=== PATIENT | female | born 1955 | race Caucasian/White ===

== ENCOUNTER 2023-05-23 10:43 | Outpatient (CLI) | payer MEDICARE, OTHER, SELFPAY ==
[2023-05-23 11:17] LABS: Anion Gap 9 mmol/L (8-16); Blood Urea Nitrogen 19 mg/dL (7-17); Calcium 9.4 mg/dL (8.4-10.2); Carbon Dioxide 27 mmol/L (22-30); Chloride 99 mmol/L (98-107); Estimated Glomerular Filt Rate > 60; Glucose 105 mg/dL (65-110); Sodium 135 mmol/L (137-145)
== END 2023-05-23 10:44 | disposition home or self-care (01) ==
PROVIDERS: Anesthesiology; PCP Family Medicine; Visit Provider Urology
DX: I10 Essential (primary) hypertension (principal)
CPT/HCPCS: 36415; 80048

== ENCOUNTER 2023-05-27 00:35 | Day surgery (SDC) | payer MEDICARE, OTHER, SELFPAY ==
--- NOTE | 2023-05-19 15:16 | PC.NURSE ---
Report to the Outpatient Waiting Room, entrance under the green pavilion located off [facility], at time _0600 on date _05/27/23 . Planned Procedure Time: __0730 . Time changes happen often and if your time is changed the preop area will call you the afternoon before. - You and your visitor will be asked to self-screen and do not enter if you have any COVID symptoms. - A mask is optional within the hospital at this time. Patients may have clear liquids (water, carbonated beverages, clear teas, apple juice) until 3 hours prior to surgery with a maximum of 20 ounces. - No food from midnight until time of surgery - Infants may have breast milk until 4 hours before surgery, infant formula 6 hours prior to surgery. - Children will be allowed to drink immediately following surgery. If applicable, please bring a bottle or sippy cup to assist with drinking. Juice, water, soda, and popsicles are readily available. For infants on formula, please bring formula the day of surgery. Pacifiers are allowed. Take the following medications with a SIP of water the morning of surgery: ____AMLODIPINE,ESCITALOPRAM DO NOT STOP ANY OF YOUR OTHER PRESCRIPTION MEDICATIONS PRIOR TO SURGERY ?EXCEPT THE FOLLOWING Medications to discontinue per physician ALL VITAMINS/SUPPLEMENTS 3 DAYS PRE OP.LAST DOSE 05/24/23 Please no make-up, nail faroese, hairspray, perfume, deodorant, or body powder the day of surgery. No jewelry (including any body piercings) or valuables the day of surgery, leave them at home. Please take a shower or bath the night before, or the morning of, surgery with an antibacterial soap. Wear comfortable, loose fitting clothing. Children are encouraged to wear pajamas. - Jewelry must be removed prior to entering the operating room. Rings and piercings that are not removed may be cut off. - The hospital will not accept responsibility for valuables. - Please leave all valuables, including medications, at home the day of surgery. If you are going home after surgery, a licensed explosives truck driver must drive you home. - NO public transportation without another adult if you receive anesthesia. - We recommend that an adult stay with you for 24 hours following discharge. - We also recommend that you do not drive, make important decision, drink alcoholic beverages, or take any drugs that were not prescribed by your health care provider for at least 24 hours after your discharge time. For Pediatric surgeries, we recommend two adults accompany the child home. Follow any additional instructions given to you from your surgeon. If you or anyone in your household have experienced Covid symptoms in the past week, please notify your surgeon or the nurse liaison at the phone number below for possible testing. Telephone instructions given to __PATIENT and asked if any additional questions and then verbalized understanding. Patient advised to call surgeon office or pre surgery nurse liaison [phone] if any additional questions.
[2023-05-19 15:26] VITALS: BMI 30.2
--- NOTE | 2023-05-25 18:19 | PM.IMHP ---
H&P: HPI History of Present Illness Date/Time: 05/25/23 18:19 Chief Complaint: Stress incontinence Narrative: she has stress urinary incontinence. It is confirmed on urodynamics. We discussed sling. We discussed observation. We discussed physical therapy. We discussed bulking agent. She would like to pursue a bulking agent Review of Systems Review of Systems: All systems reviewed & are unremarkable except as noted in HPI and below PMFSH Past Medical History Medical History Abnormal Pap smear of cervix 08/15/07 - pema; 12/23/15 HGSIL (+) hpv Anxiety and depression Breast cancer in female (~07/2015) History of endometrial biopsy 04/15/98 hscope emb in office--dysfunctional uterine bleeding--mildly disordered proliferative endometrium 02/26/05 emb--focal disordered proliferative changes HPV in female Hypertension Stress incontinence Surgical History Surgical History History of colposcopy with cervical biopsy 11/21/07 benign 01/12/16 mild squamous atypia History of dilation and curettage (~1982) History of hysterectomy, supracervical (~2004) supracx hyst w/RSO--(R) ovarian endometrioma, uterine fibroids--endometriosis, adhesions, hyalinized, leiomyoma, benign hemorrhagic cyst History of loop electrosurgical excision procedure (LEEP) (02/05/16) HGSIL, SHANA II--margins free History of lumpectomy (07/30/15) breast cancer--16 radiation treatments History of tonsillectomy and adenoidectomy (~1961) Family History Family History Mother Hypertension Malignant neoplasm of lung Father Hypertension Malignant neoplasm of lung Sibling Hypertension brother sister Leukemia brother x2 Malignant neoplasm of skin sister Social History Social History Smoking status: Never smoker Alcohol intake: current Drinks per week: 1 Substance use: never Substance use type: does not use Living arrangements: with family Additional living arrangements comments: Occupation/Education: retired Gender identity (if verbalized by the patient): Female Sexual Orientation (if Verbalized by the Patient): Straight or Heterosexual Spiritual care concerns: No Meds Home Medications and Allergies Home Medications Medication Instructions Recorded Confirmed Type amlodipine 5 mg tablet 5 mg PO DAILY 12/13/22 05/19/23 History calcium carbonate 500 mg calcium 500 mg PO BID 12/13/22 05/19/23 History (1,250 mg) chewable tablet (Calcium 500) cholecalciferol (vitamin D3) 50 50 mcg PO DAILY 12/13/22 05/19/23 History mcg (2,000 unit) capsule escitalopram oxalate 10 mg tablet 10 mg PO DAILY 12/13/22 05/19/23 History (Lexapro) loratadine 10 mg tablet (Allergy 10 mg PO DAILY 12/13/22 05/19/23 History Relief (loratadine)) valsartan 160 1 tablet PO DAILY 12/13/22 05/19/23 History mg-hydrochlorothiazide 12.5 mg tablet Allergies Allergy/AdvReac Type Severity Reaction Status Date / Time Penicillins Allergy Intermediate Rash Verified 05/19/23 15:08 chromium Allergy Unknown Verified 05/19/23 15:13 erythromycin base AdvReac Severe Abdominal Verified 05/19/23 15:08 Pain Exam Narrative: no acute distress normal breathing alert oriented x3 Assessment and Plan Assessment and plan (1) Intrinsic sphincter deficiency (ISD): Code(s): N36.42 - Intrinsic sphincter deficiency (ISD) Status: Acute Assessment and Plan: plan for bulking agent. Understands risks of bleeding, infection, lack of efficacy, persistent recurrent stress incontinence, need for ancillary procedures, obstructive voiding requiring a secondary procedure, need for future bulking agents. She agrees to proceed
--- NOTE | 2023-05-26 08:56 | WPDANESEPPF ---
Anes - Initial Pre Proc Eval Procedure: Operation Date: 05/27/23 07:30 Proposed Procedures p Cystoscopy, Injection Bulking Agent - Kolton Glover MD Date/Time: 05/26/23 08:56 Surgeon: Kolton Glover MD Pre Op Diagnosis: Stress Incont Patient Data Age: 67 Gender: F Height: 1.57 m Weight: 74.85 kg Allergies Allergy/AdvReac Type Severity Reaction Status Date / Time Penicillins Allergy Intermediate Rash Verified 05/27/23 06:20 chromium Allergy Unknown Verified 05/27/23 06:20 erythromycin base AdvReac Severe Abdominal Verified 05/27/23 06:20 Pain Home Medications Medication Instructions Recorded Confirmed Type amlodipine 5 mg tablet 5 mg PO DAILY 12/13/22 05/19/23 History calcium carbonate 500 mg calcium 500 mg PO BID 12/13/22 05/19/23 History (1,250 mg) chewable tablet (Calcium 500) cholecalciferol (vitamin D3) 50 50 mcg PO DAILY 12/13/22 05/19/23 History mcg (2,000 unit) capsule escitalopram oxalate 10 mg tablet 10 mg PO DAILY 12/13/22 05/19/23 History (Lexapro) loratadine 10 mg tablet (Allergy 10 mg PO DAILY 12/13/22 05/19/23 History Relief (loratadine)) valsartan 160 1 tablet PO DAILY 12/13/22 05/19/23 History mg-hydrochlorothiazide 12.5 mg tablet Patient hx anesthesia problems: none Family hx anesthesia problems: none Results Review: All pre-operative results and documents have been reviewed as part of the pre-operative evaluation. [facility] Past Medical History Medical History Abnormal Pap smear of cervix 08/15/07 - pema; 12/23/15 HGSIL (+) hpv Anxiety and depression Breast cancer in female (~07/2015) History of endometrial biopsy 04/15/98 hscope emb in office--dysfunctional uterine bleeding--mildly disordered proliferative endometrium 02/26/05 emb--focal disordered proliferative changes HPV in female Hypertension Stress incontinence Surgical History Surgical History History of colposcopy with cervical biopsy 11/21/07 benign 01/12/16 mild squamous atypia History of dilation and curettage (~1982) History of hysterectomy, supracervical (~2004) supracx hyst w/RSO--(R) ovarian endometrioma, uterine fibroids--endometriosis, adhesions, hyalinized, leiomyoma, benign hemorrhagic cyst History of loop electrosurgical excision procedure (LEEP) (02/05/16) HGSIL, SHANA II--margins free History of lumpectomy (07/30/15) breast cancer--16 radiation treatments History of tonsillectomy and adenoidectomy (~1961) Family History Family History Mother Hypertension Malignant neoplasm of lung Father Hypertension Malignant neoplasm of lung Sibling Hypertension brother sister Leukemia brother x2 Malignant neoplasm of skin sister Social History Social History Smoking status: Never smoker Alcohol intake: current Drinks per week: 1 Substance use: never Substance use type: does not use Living arrangements: with family Additional living arrangements comments: Occupation/Education: retired Gender identity (if verbalized by the patient): Female Sexual Orientation (if Verbalized by the Patient): Straight or Heterosexual Spiritual care concerns: No Anes - Eval Final PreProcedure Day of Procedure 05/26/23 08:56 Patient weight: obese Heart: regular rate and rhythm Lungs: clear to auscultation Airway: Mallampati scale class II Neurological: alert and oriented Last oral intake: >/= 8 hours ASA classification: III Emergent: no Anesthetic plan: proceed Anesthesia type and monitoring: general GIVS and standard monitoring Results Review: All pre-operative results and documents have been reviewed as part of the pre-operative evaluation. Informed Consent: The patient's anesthetic pl
[2023-05-27 06:26] VITALS: BP 125/60; PULSE 75; RESP 16; TEMP 36.7; O2SAT 96
[2023-05-27] MEDS: LACTATED RINGERS 1,000 ML 30 ML IV CONT (06:51)
--- NOTE | 2023-05-27 07:15 | WPDHPUPDATE1 ---
History and Physical Update Update Date/Time: 05/27/23 07:15 History and Physical has been reviewed, including an updated exam of the patient. There are NO changes in the patient's condition. Risks, benefits, and alternatives have been discussed and questions answered. Patient agrees to proceed with procedure.
[2023-05-27] MEDS: ceFAZolin 2 GM/D5W 50 ML 2 GM/50 ML BAG IVPB (07:24)
[2023-05-27] MEDS: LIDOCAINE HCL 2% GEL UROJET 10 ML PKG MUCOUS MEM (07:39)
[2023-05-27 07:44] VITALS: BP 101/60; PULSE 68; RESP 12; O2SAT 98
--- NOTE | 2023-05-27 07:54 | P.OP_ITS ---
Procedure Note - Detailed Date of Procedure 05/27/23 Pre-op Diagnosis Stress incontinence due to intrinsic sphincter deficiency Post-op Diagnosis Same Procedure Performed Cystoscopy with suburethral injection of implant material Surgeon Kolton Glover MD District Court Judge None Anesthesia MAC and Local (Lidocaine jelly) Indications This is a woman with stress incontinence. We discussed slings and bulking agents. She would like a bulking agent we also discussed physical therapy and Kegel exercises. She understands risks of bleeding, infection, lack of efficacy, need for repeat procedures, urinary retention. She agrees to proceed Findings Uncomplicated bulking agent Description of Procedure She was correctly identified. Informed consent obtained. She from the operating room. She was given MAC anesthesia. She was placed in dorsal lithotomy position. She was prepped and draped in a sterile fashion. She was given appropriate perioperative antibiotics. A time-out performed I performed cystoscopy. Her bladder was systematically examined. There was no tumors or abnormalities. Ureteral orifices were normal. Urethra was open. I chose a site 2 cm distal bladder neck. I injected bulking agent circumferentially. I used 1-1/2 syringe total there was excellent bulking effect and it completely coapted the urethra. Her bladder was left full. She was awakened and transfer red to the PACU in stable condition Implants Bulking agent Estimated Blood Loss 1 Complications No immediate complications Condition Stable Disposition PACU
[2023-05-27 08:10] VITALS: BP 132/66; PULSE 67; RESP 20
[2023-05-27] MEDS: oxyCODONE HCL (*CRX) 5 MG TAB IR PO (08:22)
[2023-05-27 08:30] VITALS: BP 128/62; PULSE 60; RESP 20
== END 2023-05-27 08:38 | disposition home or self-care (01) ==
PROVIDERS: PCP Family Medicine; Visit Provider Urology
PROC: 3E0K8GC Introduction of Other Therapeutic Substance into Genitourinary Tract, Via Natural or Artificial Opening Endoscopic (ICD-10-PCS; CPT 51715; principal; 2023-05-27 07:30)
DX: N36.42 Intrinsic sphincter deficiency (ISD) (principal); N39.3 Stress incontinence (female) (male); F41.8 Other specified anxiety disorders; I10 Essential (primary) hypertension; E66.9 Obesity, unspecified; Z68.32 Body mass index [BMI] 32.0-32.9, adult; Z85.3 Personal history of malignant neoplasm of breast
CPT/HCPCS: 51715; A9270; J0690; J2704; J3010; J7120; L8606